=== PATIENT | female | born 1990 | race African-American/Black ===

== ENCOUNTER 2016-08-03 14:20 | Emergency (ER) | payer MEDICAID ==
[~2016-08-03] VITALS: Ht 167.6 cm; Wt 61.2 kg
--- NOTE | 2016-08-03 14:34 | Emergency Room Report ---
History of Present Illness General Chief Complaint: Abdominal Pain Source: Patient, Medical Record (Janett Michelle) Present Illness HPI 25-year-old female presents to emergency Department complaining of 10 out of 10 in severity right-sided abdominal pain times one day. Patient reports nausea since yesterday denies history of vomiting. Patient reports chills denies fevers. Patient states she had her period last week and she is currently at the end of her period however she does not feel like these are abdominal cramps. Patient denies , trauma or fall. Denies CP, Palpitations, LOC , AMS, dizziness, Changes in Vision, Sensation, paresthesias, or a sudden severe headache. (Janett Michelle) Allergies: Coded Allergies: PENICILLINS (Verified Allergy, Severe, 08/03/16) Patient History Past Medical History: see triage record Past Surgical History: none Pertinent Family History: none Now: No : 0 Para: 0 Reviewed Nursing Documentation: PMH: Agreed (Janett Michelle) Nursing Documentation-PMH Past Medical History: No History, Except For Hx Diabetes: Yes (Janett Michelle) Review of Systems All Other Systems: negative except mentioned in HPI (Janett Michelle) Physical Exam Vital Signs Date Time Temp Pulse Resp B/P Pulse Ox O2 Delivery O2 Flow Rate FiO2 08/03/16 14:15 100.4 116 18 138/70 99 Room Air Sp02 EP Interpretation: abnormal - pt is tachycardic at 116bpm and febrile at 100.4 General Appearance: alert, GCS 15, non-toxic, mild distress Head: normocephalic, atraumatic Eyes: bilateral eye PERRL, bilateral eye normal inspection ENT: hearing grossly normal, normal pharynx, no angioedema, normal voice Neck: full range of motion, supple/symm/no masses Respiratory: lungs clear, normal breath sounds, speaking full sentences Cardiovascular #1: regular rate, rhythm, no edema Cardiovascular #2: 2+ carotid (R), 2+ carotid (L), 2+ radial (R), 2+ radial (L) , 2+ dorsalis pedis (R), 2+ dorsalis pedis (L) Gastrointestinal: normal bowel sounds, soft, no rebound, tenderness - RUQ and RLQ TTP , positive macburny's tenderness, no Left sided TTP, other Rectal: deferred Genitourinary: normal inspection, no CVA tenderness Musculoskeletal: back normal, gait/station normal, normal range of motion, non- tender, no calf tenderness Neurologic: alert, oriented x3, responsive, motor strength/tone normal, sensory intact, speech normal Psychiatric: judgement/insight normal, memory normal, mood/affect normal, no suicidal/homicidal ideation Reflexes: 4+ bicep (R), 4+ bicep (L), 4+ tricep (R), 4+ tricep (L), 4+ knee (R) , 4+ knee (L) Skin: normal color, no rash, warm/dry, well hydrated Lymphatic: no adenopathy (Janett Michelle) Medical Decision Making PA Attestation Dr. Lutz is my supervising Physician whom patient management has been discussed with. (Janett Michelle) Diagnostic Impression: Primary Impression: Enteritis Additional Impressions: Gastroenteritis Hepatomegaly ER Course 25-year-old female presents to emergency Department complaining of 10 out of 10 in severity right-sided abdominal pain times one day. Patient reports nausea since yesterday denies history of vomiting. Patient reports chills denies fevers. Patient states she had her period last week and she is currently at the end of her period however she does not feel like these are abdominal cramps. Patient denies , trauma or fall. Ddx considered but are not limited to Diverticulitis, acute appy, diarrhea,UC, PUD, GE, pancreatitis, gallstone Vital signs: are WNL, pt. is febrile at 100.4, and 100.6 H&PE are most consistent with Gastroenteritis. ORDERS: -CBC mildly elevated wbc's at 11.1 -CMP: unremarkable - lipase: WNL -UA: WNL -Urine HCg:Negative - CT Abdomen and Pelvis with IV and ORAL CONTRAST: small loops of distended bowel, hepatomegaly, normal appendix and pancreas per preliminary radiology report. ED INTERVENTIONS: -- 1000NS, -50mg PO Zantac -Mylanta PO -4mg Morphine ( X 2) -Viscous Lidocaine PO - 20mg Bentyl DISCHARGE: At this time pt. is stable for d/c to home. Will provide printed patient care instructions, and any necessary prescriptions. Care plan and follow up instructions have been discussed with the patient prior to discharge. Labs Test 08/03/16 14:43 08/03/16 17:25 White Blood Count 8.5 K/UL (4.8-10.8) Red Blood Count 4.00 M/UL (4.20-5.40) Hemoglobin 9.8 G/DL (12.0-16.0) Hematocrit 31.7 % (37.0-47.0) Mean Corpuscular Volume 79 FL (80-99) Mean Corpuscular Hemoglobin 24.5 PG (27.0-31.0) Mean Corpuscular Hemoglobin Concent 31.0 G/DL (32.0-36.0) Red Cell Distribution Width 13.6 % (11.6-14.8) Platelet Count 511 K/UL (150-450) Mean Platelet Volume 5.5 FL (6.5-10.1) Neutrophils (%) (Auto) 78.5 % (45.0-75.0) Lymphocytes (%) (Auto) 12.6 % (20.0-45.0) Monocytes (%) (Auto) 7.9 % (1.0-10.0) Eosinophils (%) (Auto) 0.1 % (0.0-3.0) Basophils (%) (Auto) 1.0 % (0.0-2.0) Sodium Level 138 mEQ/L (135-145) Potassium Level 3.3 mEQ/L (3.4-4.9) Chloride Level 94 mEQ/L (98-107) Carbon Dioxide Level 28 mEQ/L (20-30) Anion Gap 16 (5-15) Blood Urea Nitrogen 4 mg/dL (7-23) Creatinine 0.8 mg/dL (0.5-0.9) Estimat Glomerular Filtration Rate > 60 mL/min (>60) Glucose Level 99 mg/dL (74-106) Calcium Level 9.3 mg/dL (8.6-10.2) Total Bilirubin 0.2 mg/dL (0.0-1.2) Aspartate Amino Transf (AST/SGOT) 11 U/L (5-40) Alanine Aminotransferase (ALT/SGPT) < 5 U/L (3-33) Alkaline Phosphatase 126 U/L (35-104) Total Protein 7.1 g/dL (6.6-8.7) Albumin 3.3 g/dL (3.5-5.2) Globulin 3.8 g/dL Albumin/Globulin Ratio 0.8 (1.0-2.7) Lipase 17 U/L (< 60) Urine Color Pale yellow Urine Appearance Clear Urine pH 8 (4.5-8.0) Urine Specific [place] 1.010 (1.005-1.035) Urine Protein 1+ (NEGATIVE) Urine Glucose (UA) 1+ (NEGATIVE) Urine Ketones Negative (NEGATIVE) Urine Occult Blood 5+ (NEGATIVE) Urine Nitrite Negative (NEGATIVE) Urine Bilirubin Negative (NEGATIVE) Urine Urobilinogen 1 MG/DL (0.0-1.0) Urine Leukocyte Esterase 1+ (NEGATIVE) Urine RBC 5-10 /HPF (0 - 2) Urine WBC 2-4 /HPF (0 - 2) Urine Squamous Epithelial Cells Few /LPF (NONE/OCC) Urine Bacteria Few /HPF (NONE) Urine HCG, Qualitative Negative (Janett Michelle P.AGer) ER Course I evaluated this patient in the ED at [facility] with my advanced practice provider (Physician Apartment Leasing Specialist) colleague, who practices under my general supervision. My impressions concur with the advanced practice provider in regards to their obtained history of present illness, physical exam, general management, diagnosis, and disposition. In particular, I agree with PA-obtained interpretation of imaging, rhythm strip. For the evening and overnight shifts, we do not have the benefit of an in-house Radiologist to review xrays so our interpretation may be limited. Patients are to be discharged only with normal vital signs (or if we discussed a particular exception), a plan for follow-up care, and understand to return to the ED for worsening symptoms. Please see midlevel healthcare providers note for further details. (HAYDEN LUTZ M.D.) Last Vital Signs Date Time Temp Pulse Resp B/P Pulse Ox O2 Delivery O2 Flow Rate FiO2 08/03/16 14:15 100.4 116 18 138/70 99 Room Air (Janett Michelle P.AGer) Disposition: HOME, SELF-CARE Condition: Stable Scripts Ondansetron Odt* (ZOFRAN ODT*) 4 Mg Tab.rapdis 4 MG ORAL Q6H Y for Nausea & Vomiting, #20 TAB Prov: MichelleJanett chau 08/03/16 Acetaminophen* (TYLENOL EXTRA STRENGTH*) 500 Mg Tablet 500 MG ORAL Q6HR, #30 TAB 0 Refills Prov: Janett Michelle 08/03/16 Ranitidine Hcl* (ZANTAC*) 150 Mg Tablet 150 MG ORAL TWICE A DAY for 30 Days, #60 TAB Prov: Janett Michelle 08/03/16 Dicyclomine Hcl* (BENTYL*) 10 Mg Capsule 10 MG ORAL FOUR TIMES A DAY for 4 Days, #16 CAP Prov: Janett Michelle 08/03/16 Patient Instructions: Viral Gastroenteritis, Adult Additional Instructions: Take medications as directed. Follow up with PCP in 3-5 days , CT imaging revealed enteritis and hepatomegaly Return sooner to ED if new symptoms occur, or current symptoms become worse. - Please note that this Emergency Department Report was dictated using [employer]thin film technician technology software, occasionally this can lead to erroneous entry secondary to interpretation by the dictation equipment. Janett Michelle Aug 03, 2016 14:34 HAYDEN LUTZ M.D. Aug 06, 2016 14:05
[2016-08-03] MEDS ORDERED: Morphine Sulfate 4mg/ml Inj IVP ONE ×2 (14:45→18:45)
[2016-08-03 14:58] LABS: EOSINOPHILS % (AUTO) 0.1 % (0.0-3.0); LYMPHOCYTES % (AUTO) 12.6 % (20.0-45.0); MEAN CORPUSCULAR HEMOGLOBIN 24.5 PG (27.0-31.0); MEAN CORPUSCULAR VOLUME 79 FL (80-99); MEAN PLATELET VOLUME 5.5 FL (6.5-10.1); MONOCYTES % (AUTO) 7.9 % (1.0-10.0); NEUTROPHILS % (AUTO) 78.5 % (45.0-75.0); PLATELET COUNT 511 K/UL (150-450); RED CELL DISTRIBUTION WIDTH 13.6 % (11.6-14.8); WHITE BLOOD COUNT 8.5 K/UL (4.8-10.8)
[2016-08-03 15:11] LABS: ALANINE AMINOTRANSFERASE < 5 U/L (3-33); ALBUMIN/GLOBULIN RATIO 0.8 (1.0-2.7); ANION GAP 16 (5-15); ASPARTATE AMINO TRANSFERASE 11 U/L (5-40); CALCIUM 9.3 mg/dL (8.6-10.2); CARBON DIOXIDE 28 mEQ/L (20-30); CHLORIDE 94 mEQ/L (98-107); CREATININE 0.8 mg/dL (0.5-0.9); GLOMERULAR FILTRATION RATE > 60 mL/min (>60); HEMOLYSIS 0; LIPASE 17 U/L (< 60); POTASSIUM 3.3 mEQ/L (3.4-4.9); SODIUM 138 mEQ/L (135-145); TOTAL PROTEIN 7.1 g/dL (6.6-8.7)
[2016-08-03] MEDS ORDERED: Mylanta II UD 30ml ORAL ONE (15:30)
[2016-08-03] MEDS ORDERED: Lidocaine 2% Visc 15ml soln ORAL ONE (15:30)
[2016-08-03 17:22] VITALS: BP 126/68
[2016-08-03 17:35] LABS: APPEARANCE,URINE CLEAR; KETONES,URINE NEGATIVE (NEGATIVE); LEUKOCYTE ESTERASE ,URINE 1+ (NEGATIVE); NITRITE,URINE NEGATIVE (NEGATIVE); PH,URINE 8 (4.5-8.0); PROTEIN,URINE 1+ (NEGATIVE); UROBILINOGEN,URINE 1 MG/DL (0.0-1.0)
[2016-08-03 17:51] LABS: BACTERIA,URINE FEW /HPF; SQUAMOUS EPITHELIAL CELL,UR FEW /LPF (NONE/OCC)
[2016-08-03] MEDS ORDERED: Dicyclomine 10mg Cap ORAL ONE (19:00)
[2016-08-03] MEDS ORDERED: BENTYL10 MG ORAL (19:18)
[2016-08-03] MEDS ORDERED: ZOFRAN ODT4 MG ORAL (19:18)
[2016-08-03] MEDS ORDERED: TYLENOL EXTRA500 MG ORAL (19:18)
[2016-08-03] MEDS ORDERED: ZANTAC150 MG ORAL (19:18)
[2016-08-03 19:44] VITALS: BP 121/85
[2016-08-03 19:45] VITALS: BP 121/85
--- NOTE | 2016-08-04 08:43 | Diagnostic Imaging Report ---
Clinical Indication: Severe right lower quadrant abdominal pain Technique: Patient given oral contrast. IV administration nonionic contrast. Venous phase spiral acquisition obtained through the abdomen and pelvis. Multiplanar reconstructions were generated. Total dose length product 701 mGycm. CTDIvol(s) 13 mGy Comparison: None Findings: The appendix is normal. No evidence of diverticulosis or diverticulitis. No small bowel distention. Questionable mild wall thickening of a few mid abdominal and left upper quadrant small bowel loops. Contrast traverses the entirety of the small bowel and reaches the colon. No free or loculated intraperitoneal air or fluid. Distal esophagus, stomach are unremarkable. The liver is mildly enlarged. The gallbladder amount bile ducts, pancreas, spleen, adrenals, kidneys are unremarkable. No retroperitoneal or mesenteric mass or adenopathy. No pelvic mass or adenopathy. Equivocal mild bladder wall thickening is noted. The included lung bases are clear. The bones are unremarkable. Impression: Equivocal mild wall thickening of a few mid of the left upper quadrant small bowel loops, if real could indicate enteritis changes. Correlate with clinical findings Equivocal mild bladder wall thickening, if real could indicate cystitis. Correlate with clinical and laboratory findings. No acute process otherwise Borderline hepatomegaly This agrees with the preliminary interpretation provided overnight by Dr. Almodovar The CT scanner at [facility] is accredited by the [employer] and the scans are performed using protocols designed to limit radiation exposure to as low as reasonably achievable to attain images of sufficient resolution adequate for diagnostic evaluation.
== END 2016-08-03 19:45 | disposition home or self-care (01) ==
LOC: EDBD 14:20 → EMR 14:33
DX: K52.9 Noninfective gastroenteritis and colitis, unspecified (principal); E11.9 Type 2 diabetes mellitus without complications; Z88.0 Allergy status to penicillin
CPT/HCPCS: 36415; 74177; 80053; 81003; 81025; 83690; 85025; 96360; 96374; 96375; 99284; J2270; J2405; Q9967

== ENCOUNTER 2018-12-29 18:31 | Emergency (ER) | payer MEDICAID, OTHER ==
[~2018-12-29] VITALS: Ht 167.6 cm; Wt 77.1 kg
[~2018-12-29 18:31] MED LIST: BENTYL10 MG ORAL; TYLENOL EXTRA500 MG ORAL; ZANTAC150 MG ORAL; ZOFRAN ODT4 MG ORAL
[2018-12-29] MEDS ORDERED: INSULIN LI100 UNIT/2 SQ (18:58)
--- NOTE | 2018-12-29 18:58 | Emergency Room Report ---
History of Present Illness General Chief Complaint: Medication Refill Source: Patient Present Illness HPI 28-year-old female type 1 diabetes presents with insulin refill request patient just ran out today, no fevers no chills no chest pain no shortness of breath patient presents for medication refill Allergies: Coded Allergies: PENICILLINS (Verified Allergy, Severe, 08/03/16) Patient History Past Medical History: see triage record Now: No Reviewed Nursing Documentation: PMH: Agreed; PSxH: Agreed Nursing Documentation-PMH Past Medical History: No History, Except For Hx Diabetes: Yes Review of Systems All Other Systems: negative except mentioned in HPI Physical Exam Vital Signs Date Time Temp Pulse Resp B/P (MAP) Pulse Ox O2 Delivery O2 Flow Rate FiO2 12/29/18 18:39 98.2 87 18 111/76 (88) 99 Room Air Sp02 EP Interpretation: reviewed, normal General Appearance: well appearing, no apparent distress, alert Head: normocephalic, atraumatic Eyes: bilateral eye PERRL, bilateral eye EOMI ENT: uvula midline, moist mucus membranes Neck: supple/symm/no masses Respiratory: no respiratory distress Musculoskeletal: normal inspection Neurologic: alert, oriented x3 Psychiatric: mood/affect normal Skin: no rash, warm/dry Medical Decision Making Diagnostic Impression: Primary Impression: Encounter for medication refill ER Course Will refill insulin patient counseled to follow-up with a primary care doctor Last Vital Signs Date Time Temp Pulse Resp B/P (MAP) Pulse Ox O2 Delivery O2 Flow Rate FiO2 12/29/18 18:39 98.2 87 18 111/76 (88) 99 Room Air Disposition: HOME, SELF-CARE Condition: Stable Scripts Insulin Lispro (Insulin Lispro Kwikpen U-100) 100 Unit/1 Ml Insuln.pen 30 UNIT SQ BEFORE MEALS, #30 EA Prov: Bret Kim MD 12/29/18 Referrals: [facility] Jennifer Horton. [facility] Patient Instructions: Medicine Refill at the Emergency Department Additional Instructions: The patient was provided with discharge instructions, notified to follow-up with a primary care doctor and or specialist in the next 24-48 hours, and to return to the ED if they have worsening of their symptoms. Please note that this report is being documented using [employer] technology. This can lead to erroneous entry secondary to incorrect interpretation by the dictating instrument. Bret Kim MD Dec 29, 2018 18:58
[2018-12-29 19:01] VITALS: BP 111/76
--- NOTE | 2018-12-29 19:02 | NUR ---
ER DISCHARGE NOTE: Patient is cleared to be discharged per ERMD, pt is aox4, on room air, with stable vital signs. pt was given dc and prescription instructions, pt was able to verbalize understanding, pt is able to ambulate with steady gait. pt took all belongings.
[2018-12-29 19:04] VITALS: BP 111/76
== END 2018-12-29 19:04 | disposition home or self-care (01) ==
LOC: EMR 18:54
DX: E10.9 Type 1 diabetes mellitus without complications (principal); Z76.0 Encounter for issue of repeat prescription; Z79.4 Long term (current) use of insulin; Z88.0 Allergy status to penicillin
CPT/HCPCS: 99282

== ENCOUNTER 2019-03-22 00:14 | Emergency (ER) | payer OTHER ==
[~2019-03-22] VITALS: Ht 167.6 cm; Wt 72.6 kg
[~2019-03-22 00:14] MED LIST changes: +INSULIN LI100 UNIT/2 SQ
--- NOTE | 2019-03-22 00:24 | NUR ---
ED Nurse Note: pt walked in to ED for c/O nausea and abdominal pain x 1 day. pt states she has been having vaginal bleeding x 3 week. pt states she is bleeding heavy with 4 sani pad changes daily. pt also states she has DM I and her glucometer read 'HI" at home. currently her blood glucose is 231 at bed side. pt is alert x4. Addendum: 03/22/19 at 0033 by BRYSON ED Nurse Note: pt walked in to ED for c/O nausea and abdominal pain x 1 day. pt states she has been having vaginal bleeding x 4 moths. pt states she is bleeding heavy with 4 sani pad changes daily. pt also states she has DM I and her glucometer read 'HI" at home. currently her blood glucose is 231 at bed side. pt is alert x4.
[2019-03-22 00:26] VITALS: BP 123/92
--- NOTE | 2019-03-22 00:42 | NUR ---
ED Nurse Note: urine and blood sample sent down to lab
[2019-03-22 00:51] LABS: BASOPHILS % (AUTO) 1.4 % (0.0-2.0); HEMATOCRIT 36.2 % (37.0-47.0); HEMOGLOBIN 12.2 G/DL (12.0-16.0); LYMPHOCYTES % (AUTO) 11.9 % (20.0-45.0); MEAN CORPUSCULAR VOLUME 78 FL (80-99); MONOCYTES % (AUTO) 4.1 % (1.0-10.0); NEUTROPHILS % (AUTO) 82.6 % (45.0-75.0); PLATELET COUNT 466 K/UL (150-450); RED BLOOD COUNT 4.62 M/UL (4.20-5.40); RED CELL DISTRIBUTION WIDTH 12.4 % (11.6-14.8)
[2019-03-22 00:52] LABS: APPEARANCE,URINE CLEAR; BILIRUBIN, URINE NEGATIVE (NEGATIVE); COLOR,URINE PALE YELLOW; GLUCOSE, URINE (UA) 4+ (NEGATIVE); KETONES,URINE 3+ (NEGATIVE); LEUKOCYTE ESTERASE ,URINE NEGATIVE (NEGATIVE); NITRITE,URINE NEGATIVE (NEGATIVE); PH,URINE 5 (4.5-8.0); PROTEIN,URINE 2+ (NEGATIVE); UROBILINOGEN,URINE NORMAL MG/DL (0.0-1.0)
[2019-03-22 01:00] LABS: ANION GAP 11 mmol/L (5-15); BLOOD UREA NITROGEN 12 mg/dL (7-18); CALCIUM 9.8 MG/DL (8.5-10.1); CARBON DIOXIDE 27 MMOL/L (21-32); CHLORIDE 97 MMOL/L (98-107); CREATININE 1.2 MG/DL (0.55-1.30); POTASSIUM 3.6 MMOL/L (3.5-5.1); SODIUM 135 MMOL/L (136-145)
[2019-03-22 01:03] LABS: INR 0.9 (0.9-1.1)
--- NOTE | 2019-03-22 01:04 | Emergency Room Report ---
History of Present Illness General Chief Complaint: Abdominal Pain Source: Patient Present Illness HPI 28-year-old female history of type 1 diabetes presents with generalized weakness x1 day, she states over the past 3 months she is been having 6 pads with blood, she states she has a FACTORY LAY OUT ENGINEER appointment Mar 25, 2019, patient denies any chest pain shortness of breath no dyspnea on exertion patient was concerned presents to the ED for evaluation Allergies: Coded Allergies: PENICILLINS (Verified Allergy, Severe, 08/03/16) Patient History Past Medical History: see triage record Last Menstrual Period: 10/29/18 Now: No : 0 Para: 0 Reviewed Nursing Documentation: PMH: Agreed; PSxH: Agreed Nursing Documentation-PMH Past Medical History: No History, Except For Hx Diabetes: Yes Review of Systems All Other Systems: negative except mentioned in HPI Physical Exam Vital Signs Date Time Temp Pulse Resp B/P (MAP) Pulse Ox O2 Delivery O2 Flow Rate FiO2 03/22/19 00:17 98.8 92 16 141/100 (114) 99 Room Air Sp02 EP Interpretation: reviewed, normal General Appearance: well appearing, no apparent distress, alert Head: normocephalic, atraumatic Eyes: bilateral eye PERRL, bilateral eye EOMI ENT: uvula midline, moist mucus membranes Neck: supple, thyroid normal, supple/symm/no masses Respiratory: lungs clear, no respiratory distress, no retraction, no accessory muscle use Cardiovascular #1: normal peripheral pulses, regular rate, rhythm, no edema, no gallop, no murmur Gastrointestinal: non tender, soft, no guarding, no rebound Musculoskeletal: normal inspection Neurologic: alert, oriented x3 Psychiatric: mood/affect normal Skin: no rash, warm/dry Medical Decision Making Diagnostic Impression: Primary Impression: Dysfunctional uterine bleeding Additional Impression: Abdominal pain Qualified Codes: R10.30 - Lower abdominal pain, unspecified ER Course 28-year-old female presents with this functional uterine bleeding, patient has an appointment for next week, differential diagnosis includes dysfunctional uterine bleeding, fibroids, Blood work shows no evidence of worsening anemia, patient falls within the normal range Counseled patient to consider taking iron Patient will be following up with her FACTORY LAY OUT ENGINEER Patient felt better after fluid rehydration Disposition home with return precautions Laboratory Tests Test 03/22/19 00:35 White Blood Count 11.0 K/UL (4.8-10.8) H Red Blood Count 4.62 M/UL (4.20-5.40) Hemoglobin 12.2 G/DL (12.0-16.0) Hematocrit 36.2 % (37.0-47.0) L Mean Corpuscular Volume 78 FL (80-99) L Mean Corpuscular Hemoglobin 26.3 PG (27.0-31.0) L Mean Corpuscular Hemoglobin Concent 33.6 G/DL (32.0-36.0) Red Cell Distribution Width 12.4 % (11.6-14.8) Platelet Count 466 K/UL (150-450) H Mean Platelet Volume 5.7 FL (6.5-10.1) L Neutrophils (%) (Auto) 82.6 % (45.0-75.0) H Lymphocytes (%) (Auto) 11.9 % (20.0-45.0) L Monocytes (%) (Auto) 4.1 % (1.0-10.0) Eosinophils (%) (Auto) 0.0 % (0.0-3.0) Basophils (%) (Auto) 1.4 % (0.0-2.0) Prothrombin Time 9.4 SEC (9.30-11.50) Prothrombin Time INR 0.9 (0.9-1.1) PTT 22 SEC (23-33) L Urine Color Pale yellow Urine Appearance Clear Urine pH 5 (4.5-8.0) Urine Specific [place] 1.015 (1.005-1.035) Urine Protein 2+ (NEGATIVE) H Urine Glucose (UA) 4+ (NEGATIVE) H Urine Ketones 3+ (NEGATIVE) H Urine Blood 5+ (NEGATIVE) H Urine Nitrite Negative (NEGATIVE) Urine Bilirubin Negative (NEGATIVE) Urine Urobilinogen Normal MG/DL (0.0-1.0) Urine Leukocyte Esterase Negative (NEGATIVE) Urine RBC Tntc /HPF (0 - 2) H Urine WBC 0-2 /HPF (0 - 2) Urine Squamous Epithelial Cells None /LPF (NONE/OCC) Urine Bacteria Few /HPF (NONE) Urine HCG, Qualitative Negative (NEGATIVE) Sodium Level 135 MMOL/L (136-145) L Potassium Level 3.6 MMOL/L (3.5-5.1) Chloride Level 97 MMOL/L (98-107) L Carbon Dioxide Level 27 MMOL/L (21-32) Anion Gap 11 mmol/L (5-15) Blood Urea Nitrogen 12 mg/dL (7-18) Creatinine 1.2 MG/DL (0.55-1.30) Estimate Glomerular Filtration Rate > 60 mL/min (>60) Glucose Level 225 MG/DL (74-106) H Calcium Level 9.8 MG/DL (8.5-10.1) Total Bilirubin 0.6 MG/DL (0.2-1.0) Aspartate Amino Transferase (AST) 17 U/L (15-37) Alanine Aminotransferase (ALT) 16 U/L (12-78) Alkaline Phosphatase 76 U/L (46-116) Total Protein 8.8 G/DL (6.4-8.2) H Albumin 4.2 G/DL (3.4-5.0) Globulin 4.6 g/dL Albumin/Globulin Ratio 0.9 (1.0-2.7) L Lipase 153 U/L (73-393) Human Chorionic Gonadotropin, Quant Pending EKG Diagnostic Results EKG Time: 00:39 EP Interpretation: NSR, rate 81, QTc 408, no acute ST elevations, normal axis Rhythm Strip Diag. Results Rhythm Strip Time: 01:04 EP Interpretation: yes Rate: 91 Rhythm: NSR, no PVC's, no ectopy Last Vital Signs Date Time Temp Pulse Resp B/P (MAP) Pulse Ox O2 Delivery O2 Flow Rate FiO2 03/22/19 00:26 98.6 90 16 123/92 99 Room Air Disposition: HOME, SELF-CARE Condition: Stable Scripts Ferrous Sulfate (Ferrous Sulfate) 325 Mg Tablet 1 TAB ORAL DAILY, #30 TAB 0 Refills Prov: Bret Kim MD 03/22/19 Referrals: [facility],REFERRING (PCP) [facility] Jennifer Razo [facility] Patient Instructions: Abdominal Pain, Adult, Dysfunctional Uterine Bleeding Additional Instructions: The patient was provided with discharge instructions, notified to follow-up with a primary care doctor and or specialist in the next 24-48 hours, and to return to the ED if they have worsening of their symptoms. Please note that this report is being documented using [employer] technology. This can lead to erroneous entry secondary to incorrect interpretation by the dictating instrument. Bret Kim MD Mar 22, 2019 01:04
[2019-03-22 01:05] LABS: ALANINE AMINOTRANSFERASE 16 U/L (12-78); ALBUMIN 4.2 G/DL (3.4-5.0); ALBUMIN/GLOBULIN RATIO 0.9 (1.0-2.7); ALKALINE PHOSPHATASE 76 U/L (46-116); ASPARTATE AMINO TRANSFERASE 17 U/L (15-37); BILIRUBIN,TOTAL 0.6 MG/DL (0.2-1.0)
[2019-03-22] MEDS ORDERED: FEOSOL1 TAB ORAL (01:38)
[2019-03-22 01:41] VITALS: BP 120/92
--- NOTE | 2019-03-22 10:41 | Cardiology Report ---
APPROVED REPORT EKG Measurement Heart [id number] Normal sinus rhythm Normal ECG
== END 2019-03-22 01:41 | disposition home or self-care (01) ==
LOC: EMR 00:24
DX: N93.8 Other specified abnormal uterine and vaginal bleeding (principal); R10.30 Lower abdominal pain, unspecified; E11.9 Type 2 diabetes mellitus without complications; Z88.0 Allergy status to penicillin
CPT/HCPCS: 36415; 80053; 81003; 81025; 83690; 84702; 85025; 85610; 85730; 86850; 86900; 86901; 93005; 96361; 96374; J7030; S0028; Z7502; 99284